=== PATIENT | female | born 1970 | race Caucasian/White ===

== ENCOUNTER 2021-02-16 00:38 | Emergency (ER) | payer BC ==
[~2021-02-16] VITALS: Ht 154.9 cm; Wt 65.3 kg
[2021-02-16 00:50] VITALS: BP_SYST 135
[2021-02-16] MEDS ORDERED: methylPREDNISolone SOD SUCC/PF 62.5 MG/ML VIAL IVP ONE (02:15)
[2021-02-16] MEDS ORDERED: MORPHINE 4 MG INJ. 4 MG/ML VIAL IVP ONE (02:15)
[2021-02-16 03:12] LABS: BASOPHILS % (AUTO) 0.4 % (0.0-2.0); EOSINOPHILS # (AUTO) 0.1 K/uL (0.0-0.4); EOSINOPHILS % (AUTO) 1.7 % (0.0-4.0); LYMPHOCYTES # (AUTO) 2.5 K/uL (1.0-5.5); LYMPHOCYTES % (AUTO) 37.9 % (20.5-51.5); MEAN CORPUSCULAR HEMOGLOBIN 31 pg (27-31); MEAN CORPUSCULAR HGB CONC 33 % (32-36); MEAN CORPUSCULAR VOLUME 92 fL (79.0-98.0); MONOCYTES # (AUTO) 0.6 K/uL (0.0-1.0); MONOCYTES % (AUTO) 9.1 % (1.7-9.3); NEUTROPHILS # (AUTO) 3.4 K/uL (1.8-7.7); NEUTROPHILS % (AUTO) 50.9 % (40.0-70.0); PLATELET COUNT (AUTO) 272 K/uL (130-430); RED BLOOD CELL COUNT(AUTO) 5.23 MIL/uL (4.2-6.2); RED CELL DISTRIBUTION WIDTH 14.8 % (9.0-15.0); WHITE BLOOD COUNT (AUTO) 6.7 K/uL (4.8-10.8)
[2021-02-16 03:25] LABS: CALCIUM 9.5 mg/dL (8.4-11.0); CREATININE 0.76 mg/dL (0.55-1.30); POTASSIUM 3.5 mmol/L (3.5-5.1)
[2021-02-16 03:31] LABS: ALBUMIN 4.4 g/dL (3.4-4.8); TOTAL BILIRUBIN 0.4 mg/dL (0.0-1.0)
[2021-02-16] MEDS ORDERED: HYDR-3917 PO (05:42)
[2021-02-16 05:50] VITALS: BP_SYST 135
== END 2021-02-16 05:50 | disposition home or self-care (01) ==
LOC: SED 00:38
DX: M25.511 Pain in right shoulder (principal); M25.512 Pain in left shoulder; M25.551 Pain in right hip; M25.552 Pain in left hip; Z79.899 Other long term (current) drug therapy
CPT/HCPCS: 36415; 80053; 82550; 85025; 96374; 96375; 99284; J2270; J2930

== ENCOUNTER 2021-12-24 00:35 | Inpatient (IN) | payer BC ==
[~2021-12-24] VITALS: Ht 154.9 cm; Wt 64.9 kg
[~2021-12-24 00:35] MED LIST: HYDR-3917 PO
[2021-12-24 00:57] VITALS: BP_SYST 157
--- NOTE | 2021-12-24 01:00 | NUR ---
PATIENT TO ER BED 4. SIDE RAILS UP.
--- NOTE | 2021-12-24 01:02 | NUR ---
PER PATIENT, PATIENT HAS HAD DIARRHEA AND ABDOMINAL PAIN X 1 WEEK BUT STARTED RECTALLY BLEEDING X 1 DAY TODAY. PAIN STARTS MID ABDOMINAL AND RADIATES TO THE BACK.
--- NOTE | 2021-12-24 01:15 | NUR ---
JUDI BOND AT BEDSIDE EXAMINING PATIENT.
[2021-12-24] MEDS ORDERED: MAG HYDROX/AL HYDROX/SIMETH 30 ML, LIDOCAINE VISCOUS 2% 15ML (PO) 15 ML, DICYCLOMINE HC... PO ONE ×6 (01:45→04:00)
[2021-12-24 02:52] LABS: BASOPHILS % (AUTO) 0.4 % (0.0-2.0); EOSINOPHILS # (AUTO) 0.1 K/uL (0.0-0.4); EOSINOPHILS % (AUTO) 1.3 % (0.0-4.0); HEMATOCRIT 43.7 % (36-48); HEMOGLOBIN 15.1 g/dL (12.0-16.0); LYMPHOCYTES # (AUTO) 3.4 K/uL (1.0-5.5); LYMPHOCYTES % (AUTO) 37.6 % (20.5-51.5); MEAN CORPUSCULAR HEMOGLOBIN 33 pg (27-31); MEAN CORPUSCULAR HGB CONC 35 % (32-36); MEAN CORPUSCULAR VOLUME 95 fL (79.0-98.0); MONOCYTES # (AUTO) 0.9 K/uL (0.0-1.0); MONOCYTES % (AUTO) 10.1 % (1.7-9.3); NEUTROPHILS # (AUTO) 4.6 K/uL (1.8-7.7); NEUTROPHILS % (AUTO) 50.6 % (40.0-70.0); PLATELET COUNT (AUTO) 281 K/uL (130-430); RED CELL DISTRIBUTION WIDTH 13.5 % (9.0-15.0); WHITE BLOOD COUNT (AUTO) 9.2 K/uL (4.8-10.8)
[2021-12-24] MEDS ORDERED: PIPERACILLIN/TAZO 3.375 GM in NS 50 ML IV ONE (03:00)
[2021-12-24] MEDS ORDERED: PIPERACILLIN/TAZOBACTAM 3.375 GM/VIAL (ZOSYN) IV ONE (03:22)
[2021-12-24 03:33] LABS: CALCIUM 7.9 mg/dL (8.4-11.0); CREATININE 0.79 mg/dL (0.55-1.30); POTASSIUM 3.4 mmol/L (3.5-5.1)
[2021-12-24 03:47] LABS: ALBUMIN 4.1 g/dL (3.4-4.8); PROTHROMBIN TIME 10.7 SECS (9.5-12.5); TOTAL BILIRUBIN 0.5 mg/dL (0.0-1.0)
[2021-12-24] MEDS ORDERED: ONDANSETRON HCL 4 MG/2 ML VIAL IVP ONE ×2 (04:00)
[2021-12-24] MEDS ORDERED: MORPHINE 4 MG INJ. 4 MG/ML VIAL IVP ONE (04:45)
[2021-12-24] MEDS ORDERED: KETOROLAC TROMETHAMINE 30 MG VIAL IVP ONE (04:45)
[2021-12-24] MEDS ORDERED: fentaNYL CITRATE/PF 100 MCG/2 ML AMP IVP ONE (06:00)
[2021-12-24] MEDS ORDERED: metroNIDAZOLE 500 MG TABLET PO ONE (06:45)
--- NOTE | 2021-12-24 06:45 | NUR ---
Admit bed requested Patient will be admitted to care of . Admitted to MEDSURGE unit. Diagnosis CHOLECYSTITIS Inpatient (Yes or No) YES Observation (Yes or No) NO Orientation concerns or request close to nursing station (Yes or No) NO Covid Status PENDING On vent or bipap NO Isolation requirements Needs a sitter NO From Home (Yes or if No enter name of facility) HOME Requires Dialysis (Yes or No) NO Med Rec Completed (Yes of No)
[2021-12-24] MEDS ORDERED: PRED5TAB (07:47)
[2021-12-24 08:20] VITALS: BP_SYST 116
--- NOTE | 2021-12-24 08:20 | NUR ---
ADMISSION NOTE Received patient from ER via [facility], received report from Guanaco MCCAULEY. Patient admitted with diagnosis of cholecystitis. Patient oriented to hospital routine, call light, toileting and safety-patient verbalized understanding.
--- NOTE | 2021-12-24 08:20 | NUR ---
CARE ENDORSED TO [facility] PARISA TINAJERO PROVIDED. ALL QUESTIONS ANSWERED. ADMISSION PACKET PRESENT. VSS. NAD NOTED. END OF CARE.
--- NOTE | 2021-12-24 08:46 | NUR ---
SURGERY CONSULT CALLED DR TALAVERA CONSULT SPOKE TO IAIN. NOTIFIED FOR CONSULT. DX CHOLECYSTITIS
[2021-12-24] MEDS: KCL 20 mEq in D5NS 1000 mL 1,000 ML IV SCH ×2 (09:24→19:00)
--- NOTE | 2021-12-24 09:43 | NUR ---
Spoke with Dr. Crowder Spoke with Dr. Crowder, received new orders as charted. Addendum: 12/24/21 at 2113 by Marilee Funez RN Dr. Paz*
[2021-12-24] MEDS ORDERED: ONDANSETRON HCL 4 MG/2 ML VIAL IVP PRN (10:30)
[2021-12-24] MEDS ORDERED: NALOXONE HCL 0.4 MG/ML AMP (NARCAN) IVP PRN (10:30)
[2021-12-24] MEDS ORDERED: GABA800T PO (11:45)
[2021-12-24] MEDS ORDERED: METH2.5T PO (11:45)
[2021-12-24 12:15] VITALS: BP_SYST 113
[2021-12-24] MEDS: PIPERACILLIN/TAZO 3.375 GM in NS 50 ML IV SCH ×2 (13:06→18:00)
[2021-12-24] MEDS: HYDROmorphone 1 MG/ML INJ. CARTRIDGE IVP PRN ×2 (13:09→20:16)
--- NOTE | 2021-12-24 15:00 | NUR ---
Dr. Wan at bedside Dr. Wan at bedside. Patient receptive to information provided.
[2021-12-24 16:15] VITALS: BP_SYST 143
--- NOTE | 2021-12-24 17:20 | NUR ---
Nuclear Medicine Patient picked up via wheelchair by nuclear medicineLissette.
--- NOTE | 2021-12-24 19:30 | NUR ---
Closing Note Patient in nuclear medicine. Endorsed care to shift engineer PARISA Max.
[2021-12-24 20:12] VITALS: BP_SYST 131
[2021-12-24] MEDS: ENOXAPARIN SODIUM 40 MG/0.4 ML SYRINGE SUBCUT SCH (20:15)
[2021-12-25] MEDS: PIPERACILLIN/TAZO 3.375 GM in NS 50 ML IV SCH ×5 (00:44→23:53)
[2021-12-25 00:52] VITALS: BP_SYST 134
[2021-12-25] MEDS: KCL 20 mEq in D5NS 1000 mL 1,000 ML IV SCH ×2 (00:58→15:00)
[2021-12-25] MEDS: HYDROmorphone 1 MG/ML INJ. CARTRIDGE IVP PRN ×4 (00:59→21:43)
[2021-12-25 05:01] LABS: BILIRUBIN,URINE NEGATIVE (NEGATIVE); BLOOD, URINE NEGATIVE (NEGATIVE); CLARITY/URINE CLEAR (CLEAR); COLOR,URINE YELLOW (YELLOW); GLUCOSE,URINE NEGATIVE (NEGATIVE); KETONES,URINE NEGATIVE (NEGATIVE); LEUKOCYTE ESTERASE ,URINE NEGATIVE (NEGATIVE); NITRITE, URINE NEGATIVE (NEGATIVE); PROTEIN URINE NEGATIVE (NEGATIVE); UROBILINOGEN,URINE 0.2 (0.2-1.0)
[2021-12-25 06:53] VITALS: BP_SYST 126
--- NOTE | 2021-12-25 07:36 | NUR ---
endorse care to day cable television program director. pt consent and check list not finished yet endorsed to care. pt npo since midnight. all needs meet at this time
[2021-12-25 08:00] VITALS: BP_SYST 100
--- NOTE | 2021-12-25 08:00 | NUR ---
Initial notes Patient, awake, alert and oriented. Patient states has pain, pain med given prior to start of shift. States pain is slightly better than earlier. Finished preop check list. Vitals obtained, as documented. No s/s of respiratory distress. Spoke to OR nurse. Patient surgery scheduled for 1000. Patient is has cleaned with chlorhexidine wipes. Safety precautions in place and call light within reach.
[2021-12-25] MEDS: predniSONE 5 MG TABLET PO SCH (09:00)
--- NOTE | 2021-12-25 09:45 | NUR ---
Notes Dr. Wan came to speak to patient. All pre op forms and consents were signed and completed. OR nurse check forms as well. Patient taken to surgery.
[2021-12-25] MEDS ORDERED: ROCURONIUM BROMIDE 10 MG/ML (ZEMURON) IV ONE (09:52)
[2021-12-25] MEDS ORDERED: NS IRRIG SOLN 1000 ML IR ONE (09:52)
[2021-12-25] MEDS ORDERED: IOHEXOL 300 mgI/mL, 50 mL INFUS..BTL IV ONE (09:52)
[2021-12-25] MEDS ORDERED: SEVOFLURANE 15 MIN GAS INH ONE (09:52)
[2021-12-25] MEDS ORDERED: ONDANSETRON HCL 4 MG/2 ML VIAL IVP ONE (09:52)
[2021-12-25] MEDS ORDERED: fentaNYL CITRATE/PF 100 MCG/2 ML AMP IVP ONE (09:52)
[2021-12-25] MEDS ORDERED: NS 1000 ML IV.SOLN IV ONE (09:52)
[2021-12-25] MEDS ORDERED: BUPIVACAINE /EPINEPHRINE/PF 0.25% 30 ML VIAL INJ ONE (09:52)
[2021-12-25] MEDS ORDERED: PROPOFOL 200MG/ 20ML VIAL (DIPRIVAN) IV ONE (09:52)
[2021-12-25] MEDS ORDERED: NALOXONE HCL 0.4 MG/ML AMP (NARCAN) IVP PRN ×3 (10:30→13:30)
[2021-12-25] MEDS ORDERED: KETOROLAC TROMETHAMINE 30 MG VIAL IVP PRN (10:30)
[2021-12-25] MEDS ORDERED: HYDROmorphone 1 MG/ML INJ. CARTRIDGE IVP PRN (10:30)
[2021-12-25] MEDS ORDERED: ONDANSETRON HCL 4 MG/2 ML VIAL IVP PRN ×2 (10:30→13:30)
[2021-12-25] MEDS ORDERED: ACETAMINOPHEN 325 MG TABLET PO PRN (11:30)
[2021-12-25] MEDS: HYDROmorphone 1 MG/ML INJ. CARTRIDGE ONE ×2 (11:50→12:20)
[2021-12-25] MEDS ORDERED: ONDANSETRON HCL 4 MG/2 ML VIAL ONE (11:59)
[2021-12-25] MEDS ORDERED: KETOROLAC TROMETHAMINE 30 MG VIAL ONE (11:59)
[2021-12-25 12:50] VITALS: BP_SYST 107
--- NOTE | 2021-12-25 12:50 | NUR ---
Notes Patient returned to unit from surgery. Received report from post op nurse. Will continue to monitor.
--- NOTE | 2021-12-25 14:00 | NUR ---
Notes Assisted patient to the restroom, tolerated well. Patient back in bed. Family at bedside. Safety precautions in place and call light. within reach.
[2021-12-25] MEDS: HYDROcodone/ACETAMIN 5-325 MG TAB (NORCO/ VICODIN) PO PRN ×2 (14:39→23:52)
[2021-12-25] MEDS: NACL 0.9% 1,000 ML IV SCH ×2 (14:41→23:54)
[2021-12-25 16:00] VITALS: BP_SYST 112
--- NOTE | 2021-12-25 18:57 | NUR ---
Closing notes Patient sitting in chair, beside her. Patient on room air, no distress, no SOB noted. Patient in stable condition. last pain med given at 1715. Safety precautions in place and call light within reach. Will endorse continuing of care to incoming nurse.
--- NOTE | 2021-12-25 20:32 | NUR ---
RECEIVED PT SITTING ON CHAIR USING IS 1000ML, ABD DRSG CDI, DENIES PAIN AT THIS TIME. IVF INFUSING TO LT WRIST SITE CDI. ENCOURAGE PT TO AMBULATE. ABD MILDLY DISTENDED. WILL CONTINUE TO MONITOR.
[2021-12-25 20:34] VITALS: BP_SYST 107
--- NOTE | 2021-12-25 20:35 | NUR ---
2035: PT AMBULATING IN HALLWAY, GAIT STEADY.
[2021-12-25] MEDS: ENOXAPARIN SODIUM 40 MG/0.4 ML SYRINGE SUBCUT SCH (21:41)
[2021-12-26 00:39] VITALS: BP_SYST 119
[2021-12-26] MEDS: KCL 20 mEq in D5NS 1000 mL 1,000 ML IV SCH ×3 (01:55→17:06)
[2021-12-26] MEDS: HYDROmorphone 1 MG/ML INJ. CARTRIDGE IVP PRN ×6 (02:38→21:30)
[2021-12-26] MEDS: PIPERACILLIN/TAZO 3.375 GM in NS 50 ML IV SCH ×3 (05:13→17:05)
[2021-12-26 06:07] LABS: BASOPHILS % (AUTO) 0.5 % (0.0-2.0); EOSINOPHILS # (AUTO) 0.3 K/uL (0.0-0.4); EOSINOPHILS % (AUTO) 4.9 % (0.0-4.0); HEMATOCRIT 32.4 % (36-48); HEMOGLOBIN 11.2 g/dL (12.0-16.0); LYMPHOCYTES # (AUTO) 1.9 K/uL (1.0-5.5); LYMPHOCYTES % (AUTO) 31.7 % (20.5-51.5); MEAN CORPUSCULAR HEMOGLOBIN 33 pg (27-31); MEAN CORPUSCULAR HGB CONC 35 % (32-36); MEAN CORPUSCULAR VOLUME 96 fL (79.0-98.0); MONOCYTES # (AUTO) 0.9 K/uL (0.0-1.0); MONOCYTES % (AUTO) 15.9 % (1.7-9.3); NEUTROPHILS # (AUTO) 2.8 K/uL (1.8-7.7); PLATELET COUNT (AUTO) 154 K/uL (130-430); RED BLOOD CELL COUNT(AUTO) 3.38 MIL/uL (4.2-6.2); WHITE BLOOD COUNT (AUTO) 5.9 K/uL (4.8-10.8)
[2021-12-26 06:26] LABS: ALBUMIN 2.8 g/dL (3.4-4.8); CALCIUM 7.9 mg/dL (8.4-11.0); CREATININE 0.61 mg/dL (0.55-1.30); POTASSIUM 3.4 mmol/L (3.5-5.1); TOTAL BILIRUBIN 1.2 mg/dL (0.0-1.0)
[2021-12-26 08:00] VITALS: BP_SYST 99
--- NOTE | 2021-12-26 08:00 | NUR ---
Initial Notes Patient sitting at the edge of the bed, patient finished ambulating in the hallway. AOx4. Vitals signs obtained as documented. No distress noted. No SOB. Patient states in pain, last pain med was given prior to shift of change. Helped reposition patient to a more comfortable position. Will continue to monitor. Breakfast on bedside table in front of patient. Safety precautions in place and call light within reach.
[2021-12-26] MEDS: predniSONE 5 MG TABLET PO SCH (08:43)
[2021-12-26] MEDS: HYDROcodone/ACETAMIN 5-325 MG TAB (NORCO/ VICODIN) PO PRN ×2 (08:43→12:57)
[2021-12-26] MEDS: NACL 0.9% 1,000 ML IV SCH (09:30)
--- NOTE | 2021-12-26 11:00 | NUR ---
NOTES PATIENT WALKED IN THE LOVELL WITH DAUGHTER. PATIENT TOLERATED WELL. NO DISTRESS NOTED.
[2021-12-26 12:00] VITALS: BP_SYST 108
[2021-12-26] MEDS ORDERED: POTASSIUM CHLORIDE 20 MEQ/PKT PACKET PO ONE (12:15)
[2021-12-26 16:00] VITALS: BP_SYST 108
--- NOTE | 2021-12-26 17:15 | NUR ---
NOTES PATIENT IN CHAIR BY BEDSIDE. PATIENT WAS GIVEN PAIN MEDICATIONS. NO S/S OF RESPIRATORY DISTRESS. NO SOB. WILL CONTINUE TO MONITOR.
--- NOTE | 2021-12-26 18:45 | NUR ---
CLOSING NOTES PATIENT IS EATING DINNER. NO S/S OF DISTRESS. PAIN IS SUBSIDING. SAFETY PRECAUTIONS IN PLACE AND CALL LIGHT WITHIN REACH. ENDORSED CARE TO INCOMING NURSE.
[2021-12-26 21:24] VITALS: BP_SYST 132
[2021-12-26] MEDS: ENOXAPARIN SODIUM 40 MG/0.4 ML SYRINGE SUBCUT SCH (21:29)
[2021-12-27 00:10] VITALS: BP_SYST 133
[2021-12-27] MEDS: PIPERACILLIN/TAZO 3.375 GM in NS 50 ML IV SCH ×3 (00:50→11:59)
[2021-12-27] MEDS: HYDROmorphone 1 MG/ML INJ. CARTRIDGE IVP PRN ×4 (01:02→12:04)
[2021-12-27] MEDS: KCL 20 mEq in D5NS 1000 mL 1,000 ML IV SCH (04:22)
[2021-12-27 04:28] VITALS: BP_SYST 129
--- NOTE | 2021-12-27 05:52 | NUR ---
PT CONTINUE TO C/O ABD PAIN AND REQUESTING PAIN MEDS Q3H. PT HAS BEEN ABLE TO AMBULATE IN HALLWAYS. PT EDUCATED ON IMPORTANCE OF PASSING GAS AND BOWEL MOVEMENTS. WILL CONTINUE TO MONITOR.
[2021-12-27 05:55] LABS: BASOPHILS % (AUTO) 0.6 % (0.0-2.0); EOSINOPHILS # (AUTO) 0.4 K/uL (0.0-0.4); EOSINOPHILS % (AUTO) 5.7 % (0.0-4.0); HEMATOCRIT 34.4 % (36-48); HEMOGLOBIN 11.8 g/dL (12.0-16.0); LYMPHOCYTES # (AUTO) 2.8 K/uL (1.0-5.5); LYMPHOCYTES % (AUTO) 45.3 % (20.5-51.5); MEAN CORPUSCULAR HEMOGLOBIN 33 pg (27-31); MEAN CORPUSCULAR HGB CONC 34 % (32-36); MEAN CORPUSCULAR VOLUME 96 fL (79.0-98.0); MONOCYTES # (AUTO) 0.9 K/uL (0.0-1.0); MONOCYTES % (AUTO) 13.7 % (1.7-9.3); NEUTROPHILS # (AUTO) 2.2 K/uL (1.8-7.7); NEUTROPHILS % (AUTO) 34.7 % (40.0-70.0); PLATELET COUNT (AUTO) 188 K/uL (130-430); RED CELL DISTRIBUTION WIDTH 12.8 % (9.0-15.0); WHITE BLOOD COUNT (AUTO) 6.2 K/uL (4.8-10.8)
--- NOTE | 2021-12-27 07:35 | NUR ---
MORNING ROUNDS: PATIENT RESTING ON THE BED. IV FLUIDS RUNNING AT RIGHT WRIST INTACT.CALL LIGHT WITH IN REACH. BED LOCKED AT LOWEST POSITION. WITH SMALL DRESSING X4 AT THE ABDOMEN,INTACT. STILL WITH POST OP PAIN AND MEDS TO FOLLOW. STABLE.
[2021-12-27] MEDS: predniSONE 5 MG TABLET PO SCH (08:17)
[2021-12-27 08:22] VITALS: BP_SYST 133
[2021-12-27 11:53] VITALS: BP_SYST 122
[2021-12-27] MEDS ORDERED: KETOROLAC TROMETHAMINE 30 MG VIAL IVP PRN (12:30)
--- NOTE | 2021-12-27 12:30 | NUR ---
Surgeon Paged: Spoke with Dr. Wan with orders advanced diet to soft diet and discontinue Dilaudid iv and changed to Toradol 30mg Iv push every 6 hours as needed for pain.
[2021-12-27 16:00] VITALS: BP_SYST 137
[2021-12-27] MEDS ORDERED: POTASSIUM CHLORIDE 20 MEQ/PKT PACKET PO ONE (17:30)
--- NOTE | 2021-12-27 17:52 | NUR ---
SURGEON CLEARED: SPOKE WITH HERNANDEZ VARGAS DC HOME AND F/U WITH HIS OFFICE IN 1 WEEK. OKAY TO SHOWER BUT KEEP DRESSING CLEAN AND DRY.
[2021-12-27 17:59] VITALS: BP_SYST 137
== END 2021-12-27 18:40 | disposition home or self-care (01) | DRG 419 ==
LOC: SED 00:35 → SMU 06:58
PROVIDERS: ADMIT Family Medicine; ATTEND Family Medicine
PROC: BF101ZZ Fluoroscopy of Bile Ducts using Low Osmolar Contrast (ICD-10-PCS; 2021-12-25)
PROC: 0FT44ZZ Resection of Gallbladder, Percutaneous Endoscopic Approach (ICD-10-PCS; principal; 2021-12-25 09:52)
DX: K80.00 Calculus of gallbladder with acute cholecystitis without obstruction (principal); Z20.822 Contact with and (suspected) exposure to COVID-19; M06.9 Rheumatoid arthritis, unspecified; E06.3 Autoimmune thyroiditis
CPT/HCPCS: 36415; 71045; 74300; 76705; 78226; 80053; 81003; 82150; 82272; 83605; 83690; 83735; 85025; 85610-TC; 85730-TC; 86886; 86900; 86901; 87040; 87045-TC; 87046; 87081; 88304; 89055; 96374; 96375; 99285; A9537; C1727; J1170; J1650; J1885; J2001; J2270; J2405; J2543; J2704; J3010; J3490; J7030; J7512; Q9967